=== PATIENT | male | born 1950 | race Hispanic/Latino ===

== ENCOUNTER → 2017-08-27 | Outpatient (CLI) | payer MEDICARE | END | disposition home or self-care (01) | LOC: SHCH 08:35 | PROVIDERS: ATTEND Internal Medicine Cardiovascular Disease | DX: I73.9 Peripheral vascular disease, unspecified (principal) | CPT/HCPCS: 93925 ==

== ENCOUNTER → 2017-08-27 | Outpatient (CLI) | payer MEDICARE | END | disposition home or self-care (01) | LOC: SHCH 08:05 | PROVIDERS: ATTEND Internal Medicine Cardiovascular Disease | DX: I71.4 Abdominal aortic aneurysm, without rupture (principal) | CPT/HCPCS: 93978 ==

== ENCOUNTER → 2017-10-24 | Outpatient (CLI) | payer MEDICARE ==
[~2017-10-24] MED LIST: IOPAMIDOL-370 100 ML VIAL IV ONE; ISOVUE-370 50ML VIAL IV ONE
== END | disposition home or self-care (01) ==
LOC: RAH 07:37
PROVIDERS: ATTEND Internal Medicine Cardiovascular Disease
DX: I70.0 Atherosclerosis of aorta (principal); I73.9 Peripheral vascular disease, unspecified; K82.8 Other specified diseases of gallbladder; Q61.3 Polycystic kidney, unspecified; M25.461 Effusion, right knee
CPT/HCPCS: 75635; Q9967 ×2

== ENCOUNTER → 2018-05-18 | Outpatient (CLI) | payer MEDICARE ==
[~2018-05-18] MED LIST changes: +CLOP75TA32 PO; +FOLI1TAB85 PO; +IOHEXOL-350 75 ML VIAL IV ONE; -IOPAMIDOL-370 100 ML VIAL IV ONE; -ISOVUE-370 50ML VIAL IV ONE; +LISI-613 PO; +PANT40TA25 PO; +PHOSLOC PO
== END | disposition home or self-care (01) ==
LOC: RAH 13:25
PROVIDERS: ATTEND Internal Medicine Nephrology
DX: M47.896 Other spondylosis, lumbar region (principal); M48.061 Spinal stenosis, lumbar region without neurogenic claudication; K57.90 Diverticulosis of intestine, part unspecified, without perforation or abscess without bleeding; Q61.3 Polycystic kidney, unspecified; M41.86 Other forms of scoliosis, lumbar region
CPT/HCPCS: 72133; Q9967

== ENCOUNTER → 2018-08-05 | Outpatient (CLI) | payer MEDICARE ==
[~2018-08-05] MED LIST changes: -IOHEXOL-350 75 ML VIAL IV ONE
== END | disposition home or self-care (01) ==
LOC: SHCH 10:12
PROVIDERS: ATTEND Internal Medicine Cardiovascular Disease
DX: I11.9 Hypertensive heart disease without heart failure (principal); I73.9 Peripheral vascular disease, unspecified
CPT/HCPCS: 93306; 93925

== ENCOUNTER → 2019-03-08 | Outpatient (CLI) | payer MEDICARE | END | disposition home or self-care (01) | LOC: SHCH 09:21 | PROVIDERS: ATTEND Internal Medicine Cardiovascular Disease | DX: I73.9 Peripheral vascular disease, unspecified (principal) | CPT/HCPCS: 93925 ==

== ENCOUNTER → 2019-07-21 | Outpatient (CLI) | payer MEDICARE ==
[~2019-07-21] MED LIST changes: +CLON0.2T PO; -CLOP75TA32 PO; -LISI-613 PO; -PHOSLOC PO
== END | disposition home or self-care (01) ==
LOC: SHCH 08:23
PROVIDERS: ATTEND Internal Medicine Cardiovascular Disease
DX: I08.2 Rheumatic disorders of both aortic and tricuspid valves (principal)
CPT/HCPCS: 93306; 93356

== ENCOUNTER 2019-07-26 18:39 | Inpatient (IN) | payer MEDICARE ==
[~2019-07-26] VITALS: Ht 167.6 cm; Wt 63.4 kg
[~2019-07-26 18:39] MED LIST changes: +ALBUMIN (HUMAN) 25% 50 ML IV ONE; +AMINOCAPROIC ACID 250 MG/ML 20 ML VIAL IV ONE; +CALCIUM CHLORIDE 100 MG/ML 10 ML SYG IVP ONE; +HEPARIN SODIUM 1000UNIT/ML 10ML VIAL IV ONE; +MAGNESIUM SULFATE 1 GM/2 ML VIAL IM ONE; +PHENYLEPHRINE HCL 10 MG/ML 1ML VIAL IV ONE; +SODIUM BICARB 8.4% 50ML SYRINGE IVP ONE
[2019-07-26 20:01] LABS: HEMATOCRIT 29.7 % (42-54); MEAN CORPUSCULAR HEMOGLOBIN 30.7 pg (27.0-33.0); MEAN CORPUSCULAR HGB CONC 32.3 g/dL (32.0-36.0); MEAN CORPUSCULAR VOLUME 94.9 fL (79-99); PLATELET COUNT (AUTO) 131 K/uL (130-400); RED BLOOD CELL COUNT(AUTO) 3.13 MIL/uL (4.50-6.20); RED CELL DISTRIBUTION WIDTH 13.2 % (11.0-15.5); WHITE BLOOD COUNT (AUTO) 3.6 K/uL (4.8-10.8)
[2019-07-26 20:14] LABS: INR 1.07 (0.85-1.15); PARTIAL THROMBOPLASTIN TIME 29.5 SEC (26.3-35.5); PROTHROMBIN TIME 11.2 SEC (9.6-11.6)
[2019-07-26 20:16] LABS: BILIRUBIN,TOTAL 0.6 mg/dL (0.2-1.0); POTASSIUM 4.5 mmol/L (3.5-5.1); TOTAL PROTEIN, SERUM 7.7 g/dL (6.0-8.3)
[2019-07-26 20:17] LABS: CREATININE 7.9 mg/dL (0.5-1.5)
[2019-07-26] MEDS: ATORVASTATIN CALCIUM 20 MG TABLET PO SCH (21:00)
[2019-07-26] MEDS: METOPROLOL TARTRATE 25 MG TAB PO SCH (21:00)
[2019-07-26 23:58] VITALS: BP 197/74
[2019-07-27] VITALS (48 sets, daily range): BP systolic 57–184; BP diastolic 0–95
--- NOTE | 2019-07-27 07:25 | NUR ---
ASSESSMENT ENCOUNTERED PT A&OX3, HARD OF HEARING, CALM COOPERATIVE AND DOES NOT APPEAR TO BE IN ANY DISTRESS NOR ANY NEURO DEFICITS PRESENT. PT DENIES PAIN, SOB, NAUSEA. LAVA WITH BRUIT/THRILL PRESENT, PT IS NPO PENDING CABG, CALL LIGHT WITHIN REACH, FAMILY AT BEDSIDE.
[2019-07-27] MEDS: METOPROLOL TARTRATE 25 MG TAB PO SCH (07:41)
[2019-07-27] MEDS ORDERED: AMINOCAPROIC ACID 15,000 MG in SODIUM CHLORIDE 0.9% 500ML 420 ML IV PRN (08:15)
[2019-07-27] MEDS ORDERED: NOREPINEPHRINE BITARTRATE 8 MG in DEXTROSE 5%-WATER 250 ML IV PRN (08:15)
[2019-07-27] MEDS ORDERED: EPINEPHRINE 10 MG in SODIUM CHLORIDE 0.9% 240 ML IV PRN (08:15)
[2019-07-27] MEDS ORDERED: ASPIRIN 81 MG EC TAB PO SCH (09:00)
[2019-07-27] MEDS ORDERED: HEPARIN SODIUM 1000UNIT/ML 10ML VIAL ONE (10:06)
[2019-07-27] MEDS ORDERED: EPINEPHRINE 1 MG/ML AMPULE ONE (10:06)
[2019-07-27] MEDS ORDERED: LIDOCAINE PF 2% 5ML ABBOJECT ONE ×4 (10:06→10:12)
[2019-07-27] MEDS ORDERED: SODIUM BICARB 50MEQ 50ML VIAL ONE (10:06)
[2019-07-27] MEDS ORDERED: PROTAMINE SULFATE 10 MG/ML 25ML VIAL IV ONE (10:06)
[2019-07-27] MEDS ORDERED: ESMOLOL HCL 10 MG/ML 10 ML VIAL ONE (10:06)
[2019-07-27] MEDS ORDERED: FENTANYL CITRATE PF 50 MCG/1 ML 20ML VIAL IJ ONE (10:07)
[2019-07-27] MEDS ORDERED: ROCURONIUM 10MG/1ML SYR 10 MG/ML ML ONE ×2 (10:07→15:47)
[2019-07-27] MEDS ORDERED: PROPOFOL 10 MG/ML 20ML VIAL IV ONE (10:07)
[2019-07-27] MEDS ORDERED: MIDAZOLAM HCL 1 MG/ML 2ML VIAL ONE (10:07)
[2019-07-27] MEDS ORDERED: NOREPINEPHRINE BITARTRATE 1 MG/1 ML ML IV ONE (10:07)
[2019-07-27] MEDS ORDERED: AMINOCAPROIC ACID 250 MG/ML 20 ML VIAL IV ONE (10:07)
[2019-07-27] MEDS ORDERED: KETAMINE 50MG/ML SYRINGE 50 MG/ML DISP.SYRIN IV ONE (10:08)
[2019-07-27] MEDS ORDERED: CITRIC ACID/SODIUM CITRATE 30 ML UDCUP ONE (10:25)
[2019-07-27] MEDS ORDERED: OCTYL 2-CYANOACRYLATE 1 EACH TP ONE (11:01)
[2019-07-27] MEDS ORDERED: PAPAVERINE HCL 30 MG/ML 2ML VIAL ONE (11:02)
[2019-07-27] MEDS ORDERED: NITROGLYCERIN 50 MG/D5% WATER 1 BOT ONE (11:02)
[2019-07-27] MEDS ORDERED: BACITRACIN 50,000 UNIT VIAL ONE (11:02)
[2019-07-27] MEDS ORDERED: SODIUM CHLORIDE 0.9% 1000ML 1,000 ML IV ONE ×2 (11:20→14:34)
[2019-07-27] MEDS: CEFAZOLIN SODIUM 1 GM VIAL IVP PRN ×2 (11:26→12:15)
[2019-07-27 12:37] LABS: ABG HCO3 26.3 mmol/L (21.0-28.0); ABG PCO2 28 mmHg (35-48)
[2019-07-27] MEDS ORDERED: DELNIDO FORMULA 2 BAG IV ONE (13:36)
[2019-07-27 14:05] LABS: ABG BASE EXCESS 0.6 mmol/L (-2.0-3.0); ABG HCO3 23.2 mmol/L (21.0-28.0); ABG OXYGEN SATURATION 99.2 % (95.0-99.0); ABG PCO2 30 mmHg (35-48)
[2019-07-27] MEDS ORDERED: AMIODARONE HCL 50 MG/ML 3 ML VIAL ONE ×2 (14:13→15:35)
[2019-07-27 14:36] LABS: ABG BASE EXCESS -3.4 mmol/L (-2.0-3.0); ABG HCO3 20.1 mmol/L (21.0-28.0); ABG OXYGEN SATURATION 98.8 % (95.0-99.0); ABG PCO2 30 mmHg (35-48)
--- NOTE | 2019-07-27 14:42 | NUR ---
JO PLAN PATIENT DOWN FOR PROCEDURE. MARVIN WILL CONTINUE TO FOLLOW. Addendum: 07/27/19 at 1444 by SOCORRO WILHELM RN CM Amended: Links added.
[2019-07-27 15:13] LABS: ABG HCO3 29.5 mmol/L (21.0-28.0); ABG OXYGEN SATURATION 98.7 % (95.0-99.0); ABG PCO2 33 mmHg (35-48)
[2019-07-27] MEDS ORDERED: PROTAMINE SULFATE 10 MG/ML 5 ML VIAL ONE (15:25)
[2019-07-27] MEDS ORDERED: ALBUMIN (HUMAN) 5% 250 ML IV ONE ×3 (15:30→19:15)
[2019-07-27] MEDS ORDERED: GLYCOPYRROLATE 1 MG/5 ML SYRINGE ONE (15:38)
[2019-07-27 15:42] LABS: ABG BASE EXCESS -0.2 mmol/L (-2.0-3.0); ABG HCO3 22.5 mmol/L (21.0-28.0); ABG OXYGEN SATURATION 98.8 % (95.0-99.0); ABG PCO2 28 mmHg (35-48)
[2019-07-27] MEDS ORDERED: CEFAZOLIN SODIUM 1 GM VIAL ONE (15:59)
[2019-07-27 16:18] LABS: ABG BASE EXCESS -1.6 mmol/L (-2.0-3.0); ABG OXYGEN SATURATION 98.8 % (95.0-99.0); ABG PCO2 33 mmHg (35-48)
[2019-07-27] MEDS ORDERED: EPHEDRINE SULFATE 50 MG/ML AMPULE ONE (16:25)
[2019-07-27] MEDS ORDERED: ALBUMIN (HUMAN) 5% 250 ML IV PRN (16:45)
[2019-07-27] MEDS ORDERED: NOREPINEPHRINE 4MG/NS 250ML 250 ML IV PRN (16:45)
[2019-07-27] MEDS ORDERED: ACETAMINOPHEN 325 MG TAB PO PRN ×2 (16:45)
[2019-07-27] MEDS ORDERED: POTASSIUM PHOS 15 mMOL+NS250ML 250 ML IV PRN (16:45)
[2019-07-27] MEDS ORDERED: NITROGLYCERIN 50 MG/D5% WATER 250 BOT IV SCH (16:45)
[2019-07-27] MEDS ORDERED: MORPHINE SULFATE 4 MG/1ML SYG IV PRN (16:45)
[2019-07-27] MEDS ORDERED: GLUCAGON 1MG KIT 1 MG ML IM PRN (16:45)
[2019-07-27] MEDS ORDERED: ONDANSETRON HCL 4 MG/2 ML VIAL IV PRN (16:45)
[2019-07-27] MEDS ORDERED: ACETAMINOPHEN 650 MG SUPPOSITORY RC PRN (16:45)
[2019-07-27] MEDS ORDERED: SODIUM CHLORIDE 0.9% 500ML 500 ML IV SCH (16:45)
[2019-07-27] MEDS ORDERED: SODIUM CHLORIDE 0.9% 10 ML VIAL IVP PRN (16:45)
[2019-07-27] MEDS ORDERED: INSULIN REGULAR, HUMAN 3ML 100 UNIT in SODIUM CHLORIDE 0.9% 99 ML IV SCH ×2 (16:45)
[2019-07-27] MEDS ORDERED: PROPOFOL 1000 MG/100 ML 100 ML IV PRN (16:45)
[2019-07-27] MEDS ORDERED: EPINEPHRINE 2 MG in DEXTROSE 5%-WATER 250 ML IV PRN (16:45)
[2019-07-27] MEDS ORDERED: AMINOCAPROIC ACID 15,000 MG in SODIUM CHLORIDE 0.9% 250 ML IV SCH (16:45)
[2019-07-27] MEDS ORDERED: MORPHINE SULFATE 2 MG/ML 1ML SYG IV PRN (16:45)
[2019-07-27] MEDS ORDERED: TRAMADOL HCL 50 MG TABLET PO PRN ×2 (16:45)
[2019-07-27] MEDS ORDERED: SODIUM CHLORIDE 0.9% 1000ML 1,000 ML IV SCH (16:45)
[2019-07-27] MEDS ORDERED: POTASSIUM CHLORIDE 20MEQ/100ML 100 ML IV PRN (16:45)
[2019-07-27] MEDS ORDERED: MAGNESIUM 2GM PREMIX 50ML 50 ML IV PRN (16:45)
[2019-07-27 17:10] LABS: ABG BASE EXCESS -4.7 mmol/L (-2.0-3.0); ABG HCO3 18.4 mmol/L (21.0-28.0); ABG OXYGEN SATURATION 98.1 % (95.0-99.0); ABG PCO2 28 mmHg (35-48)
[2019-07-27 17:41] LABS: HEMATOCRIT 25.8 % (42-54); MEAN CORPUSCULAR HEMOGLOBIN 31.5 pg (27.0-33.0); MEAN CORPUSCULAR HGB CONC 33.3 g/dL (32.0-36.0); MEAN CORPUSCULAR VOLUME 94.5 fL (79-99); PLATELET COUNT (AUTO) 83 K/uL (130-400); RED BLOOD CELL COUNT(AUTO) 2.73 MIL/uL (4.50-6.20); RED CELL DISTRIBUTION WIDTH 13.2 % (11.0-15.5)
[2019-07-27 17:53] LABS: ABG BASE EXCESS 1.1 mmol/L (-2.0-3.0); ABG PCO2 27 mmHg (35-48)
[2019-07-27 17:56] LABS: INR 1.47 (0.85-1.15); PARTIAL THROMBOPLASTIN TIME 31.6 SEC (26.3-35.5); PROTHROMBIN TIME 15.2 SEC (9.6-11.6)
[2019-07-27 17:57] LABS: CREATININE 4.3 mg/dL (0.5-1.5); MAGNESIUM 3.1 mg/dL (1.80-2.40); PHOSPHORUS 3.6 mg/dL (2.5-4.9); POTASSIUM 3.9 mmol/L (3.5-5.1)
[2019-07-27] MEDS: SODIUM BICARB 50MEQ 50ML VIAL IV PRN ×5 (18:21→22:05)
[2019-07-27] MEDS: CALCIUM GLUCONATE 1 GM in SODIUM CHLORIDE 0.9% 50 ML IV PRN (18:22)
[2019-07-27] MEDS: DEXTROSE 50%-WATER 50 ML DISP.SYRIN IV PRN (18:25)
[2019-07-27 19:12] LABS: ABG BASE EXCESS -3.9 mmol/L (-2.0-3.0); ABG HCO3 19.7 mmol/L (21.0-28.0); ABG OXYGEN SATURATION 97.8 % (95.0-99.0); ABG PCO2 30 mmHg (35-48)
[2019-07-27 20:18] LABS: BASOPHILS % (AUTO) 0.1 % (0.0-5.0); EOSINOPHILS % (AUTO) 0.2 % (0.0-8.0); LYMPHOCYTES % (AUTO) 7.3 % (21.0-51.0); MEAN CORPUSCULAR HEMOGLOBIN 30.7 pg (27.0-33.0); MEAN CORPUSCULAR HGB CONC 32.4 g/dL (32.0-36.0); MEAN CORPUSCULAR VOLUME 94.9 fL (79-99); MONOCYTES % (AUTO) 8.3 % (3.0-13.0); NEUTROPHILS % (AUTO) 83.7 % (40.0-77.0); PLATELET COUNT (AUTO) 94 K/uL (130-400); RED BLOOD CELL COUNT(AUTO) 2.15 MIL/uL (4.50-6.20); RED CELL DISTRIBUTION WIDTH 13.3 % (11.0-15.5); WHITE BLOOD COUNT (AUTO) 11.8 K/uL (4.8-10.8)
[2019-07-27] MEDS ORDERED: SODIUM CHLORIDE 0.9% 250 ML IV ONE (20:21)
[2019-07-27 20:25] LABS: ABG BASE EXCESS -0.7 mmol/L (-2.0-3.0); ABG OXYGEN SATURATION 97.9 % (95.0-99.0); ABG PCO2 34 mmHg (35-48)
[2019-07-27] MEDS ORDERED: VASOPRESSIN 40 UNITS in SODIUM CHLORIDE 0.9% 40 ML IV SCH (20:30)
[2019-07-27 20:35] LABS: HEMATOCRIT 20.4 % (42-54)
[2019-07-27] MEDS: ATORVASTATIN CALCIUM 20 MG TABLET PO SCH (21:00)
[2019-07-27] MEDS ORDERED: CALCIUM GLUCONATE 1 GM/10 ML VIAL IV ONE ×2 (21:02→23:17)
[2019-07-27] MEDS: CEFAZOLIN SODIUM 1 GM VIAL IV SCH (21:45)
[2019-07-27 21:50] LABS: ABG BASE EXCESS -4.6 mmol/L (-2.0-3.0); ABG HCO3 19.4 mmol/L (21.0-28.0); ABG PCO2 31 mmHg (35-48)
[2019-07-27 23:15] LABS: ABG BASE EXCESS -1.4 mmol/L (-2.0-3.0); ABG HCO3 22.2 mmol/L (21.0-28.0); ABG PCO2 33 mmHg (35-48)
[2019-07-28] VITALS (84 sets, daily range): BP systolic 9–210; BP diastolic -10–199
[2019-07-28] MEDS: SODIUM BICARB 50MEQ 50ML VIAL IV PRN ×6 (00:05→08:07)
[2019-07-28] MEDS: DEXTROSE 50%-WATER 50 ML DISP.SYRIN IV PRN ×2 (00:15→08:42)
[2019-07-28 01:35] LABS: ABG BASE EXCESS -5.3 mmol/L (-2.0-3.0); ABG HCO3 18.1 mmol/L (21.0-28.0); ABG OXYGEN SATURATION 98.5 % (95.0-99.0); ABG PCO2 29 mmHg (35-48)
[2019-07-28] MEDS ORDERED: CALCIUM GLUCONATE 1 GM/10 ML VIAL IV ONE ×2 (01:56→03:11)
[2019-07-28 03:07] LABS: ABG BASE EXCESS -1.6 mmol/L (-2.0-3.0); ABG HCO3 21.6 mmol/L (21.0-28.0); ABG OXYGEN SATURATION 98.1 % (95.0-99.0); ABG PCO2 32 mmHg (35-48)
[2019-07-28 04:29] LABS: ABG BASE EXCESS -3.4 mmol/L (-2.0-3.0); ABG HCO3 18.8 mmol/L (21.0-28.0); ABG OXYGEN SATURATION 99.3 % (95.0-99.0); ABG PCO2 27 mmHg (35-48)
[2019-07-28 04:37] LABS: HEMATOCRIT 29.8 % (42-54); MEAN CORPUSCULAR HEMOGLOBIN 31.1 pg (27.0-33.0); MEAN CORPUSCULAR HGB CONC 34.2 g/dL (32.0-36.0); MEAN CORPUSCULAR VOLUME 90.9 fL (79-99); PLATELET COUNT (AUTO) 74 K/uL (130-400); RED BLOOD CELL COUNT(AUTO) 3.28 MIL/uL (4.50-6.20); WHITE BLOOD COUNT (AUTO) 10.5 K/uL (4.8-10.8)
[2019-07-28 04:50] LABS: INR 2.1 (0.85-1.15); PARTIAL THROMBOPLASTIN TIME 40.9 SEC (26.3-35.5); PROTHROMBIN TIME 21.4 SEC (9.6-11.6)
[2019-07-28 05:05] LABS: CREATININE 5.7 mg/dL (0.5-1.5); PHOSPHORUS 5.6 mg/dL (2.5-4.9); POTASSIUM 3.7 mmol/L (3.5-5.1)
[2019-07-28] MEDS ORDERED: ALBUMIN (HUMAN) 5% 250 ML IV ONE (05:47)
[2019-07-28] MEDS: CEFAZOLIN SODIUM 1 GM VIAL IV SCH (06:06)
[2019-07-28 06:20] LABS: ABG BASE EXCESS -2.1 mmol/L (-2.0-3.0); ABG HCO3 21.1 mmol/L (21.0-28.0); ABG OXYGEN SATURATION 99.3 % (95.0-99.0); ABG PCO2 32 mmHg (35-48)
[2019-07-28] MEDS ORDERED: PHARMACY COMMUNICATION MISC SCH (07:00)
[2019-07-28] MEDS: CALCIUM GLUCONATE 1 GM in SODIUM CHLORIDE 0.9% 50 ML IV PRN ×2 (07:38→07:39)
[2019-07-28 07:54] LABS: ABG BASE EXCESS -1.8 mmol/L (-2.0-3.0); ABG HCO3 21.3 mmol/L (21.0-28.0); ABG OXYGEN SATURATION 97.9 % (95.0-99.0); ABG PCO2 30 mmHg (35-48)
[2019-07-28] MEDS ORDERED: DEXTROSE 10%-WATER 1,000 ML IV SCH (08:30)
[2019-07-28] MEDS ORDERED: DEXTROSE 10%-WATER 1,000 ML IV ONE (08:30)
[2019-07-28 08:45] LABS: ABG BASE EXCESS 0.4 mmol/L (-2.0-3.0); ABG HCO3 23.4 mmol/L (21.0-28.0); ABG OXYGEN SATURATION 99.3 % (95.0-99.0); ABG PCO2 33 mmHg (35-48)
[2019-07-28] MEDS ORDERED: ASPIRIN 325MG EC TAB 325 MG TABLET.DR PO SCH (09:00)
[2019-07-28] MEDS ORDERED: FAMOTIDINE/PF 20 MG/2 ML VIAL IV SCH (09:00)
[2019-07-28] MEDS ORDERED: FOLIC ACID/VITAMIN B COMP W-C 1 MG CAP/TAB PO SCH (09:00)
--- NOTE | 2019-07-28 09:35 | NUR ---
PRIOR TO KELLI ALBRECHT Patient was extubated as per protocol. Prior to extubation Dr. Bull was updated on patient overall condition and Hemodynamic status. Orders were received to extubate patient. Before extubation patient's ABG was within desired ranges (refer to labs) Patient remained baseline and on same rate of pressors. Patient was able to follow all commands from protocol. Negative inspiratory force was -26, Vital capacity was 1100. Instructions were given on expectations and post extubation expectations and instructions. Patient was then extubated at 0850 and placed on cool aerosol mask 40% as per protocol. Patient remained within baseline vitals post extubation. At 0930 patient BP dropped drastically(refer to vitals) and drips were increased drastically as well as intervention(refer to I&O) patient was still responsive at this point action was taken to get ABG stat and pull albumin, by 0934 patient became unresponsive and stopped breathing CPR was started and ACLS protocol was initiated and Tre JANSEN was instructed to call kelli albrecht. Refere to kelli albrecht record.
[2019-07-28 09:45] LABS: ABG BASE EXCESS 22.7 mmol/L (-2.0-3.0); ABG OXYGEN SATURATION 95.3 % (95.0-99.0); ABG PCO2 90 mmHg (35-48)
[2019-07-28] MEDS ORDERED: EPINEPHRINE 1 MG/ML AMPULE ONE (09:54)
[2019-07-28 10:02] LABS: ABG BASE EXCESS -4.4 mmol/L (-2.0-3.0); ABG HCO3 18.9 mmol/L (21.0-28.0); ABG OXYGEN SATURATION 98.2 % (95.0-99.0); ABG PCO2 28 mmHg (35-48)
[2019-07-28] MEDS ORDERED: AMIODARONE HCL 50 MG/ML 3 ML VIAL IV ONE (12:00)
[2019-07-28] MEDS ORDERED: CALCIUM CHLORIDE 100 MG/ML 10 ML SYG IVP ONE (12:00)
[2019-07-28] MEDS ORDERED: SODIUM BICARB 8.4% 50ML SYRINGE IVP ONE (12:00)
--- NOTE | 2019-07-28 12:18 | NUR ---
CODE BLUE/ EMOTIONAL SUPPORT SW present for code blue code and no family present. Sw call #s listed on facesheet and was able to reach Sister in law at pt's home. Sister in law stated that pt's has hx of CVA and has cognitive issues, impaired speech. Sister contacted pt's sister Iggy Dickinson [phone] and informed of code blue and need for family to be at hospital. Sw recd call from pt's sister Whitney Armando [phone], sister was informed of Code Blue and asked to please come to hospital. Sister Whitney arrived at hospital shortly after 10 and spoke to MD at bedside. Sister asked for CPR to be stopped after their conversation. and sister in arrived right after and Whitney informed that pt had passed. Sw escorted and family to bedside and provided emotional support.
--- NOTE | 2019-07-28 14:50 | NUR ---
0940- PATIENT WAS ON CODE BLUE. Addendum: 07/28/19 at 1452 by TODD HOSKINS, PT PT Amended: Links added.
[2019-07-29] MEDS ORDERED: METOPROLOL TARTRATE 25 MG TAB PO SCH (09:00)
[2019-07-30] MEDS ORDERED: ENOXAPARIN SODIUM 30 MG/0.3 ML SQ SCH (09:00)
== END 2019-07-28 10:18 | disposition expired | DRG 219 ==
LOC: EDH 18:39 → EDHIP 18:58 → 2AH 22:11 → 2CV 07-27 11:25
PROVIDERS: ADMIT Thoracic Surgery (Cardiothoracic Vascular Surgery); ATTEND Thoracic Surgery (Cardiothoracic Vascular Surgery)
PROC: 5A1D70Z Performance of Urinary Filtration, Intermittent, Less than 6 Hours Per Day (ICD-10-PCS; 2019-07-26)
PROC: 5A12012 Performance of Cardiac Output, Single, Manual (ICD-10-PCS; 2019-07-26)
PROC: 5A1221Z Performance of Cardiac Output, Continuous (ICD-10-PCS; 2019-07-27)
PROC: B24BZZ4 Ultrasonography of Heart with Aorta, Transesophageal (ICD-10-PCS; 2019-07-27)
PROC: 3E083GC Introduction of Other Therapeutic Substance into Heart, Percutaneous Approach (ICD-10-PCS; 2019-07-27)
PROC: 02100Z9 Bypass Coronary Artery, One Artery from Left Internal Mammary, Open Approach (ICD-10-PCS; principal; 2019-07-27 12:14)
PROC: 02RF08Z Replacement of Aortic Valve with Zooplastic Tissue, Open Approach (ICD-10-PCS; 2019-07-27 12:14)
PROC: 021109W Bypass Coronary Artery, Two Arteries from Aorta with Autologous Venous Tissue, Open Approach (ICD-10-PCS; 2019-07-27 12:14)
PROC: 06BQ4ZZ Excision of Left Saphenous Vein, Percutaneous Endoscopic Approach (ICD-10-PCS; 2019-07-27 12:14)
PROC: 30233N1 Transfusion of Nonautologous Red Blood Cells into Peripheral Vein, Percutaneous Approach (ICD-10-PCS; 2019-07-28)
DX: I25.10 Atherosclerotic heart disease of native coronary artery without angina pectoris (principal); N18.6 End stage renal disease; I13.11 Hypertensive heart and chronic kidney disease without heart failure, with stage 5 chronic kidney disease, or end stage renal disease; Q61.3 Polycystic kidney, unspecified; I35.0 Nonrheumatic aortic (valve) stenosis; I73.9 Peripheral vascular disease, unspecified; I49.5 Sick sinus syndrome; D64.9 Anemia, unspecified; E03.9 Hypothyroidism, unspecified; E78.5 Hyperlipidemia, unspecified; Z99.2 Dependence on renal dialysis; Z95.0 Presence of cardiac pacemaker; Z95.5 Presence of coronary angioplasty implant and graft; Z80.9 Family history of malignant neoplasm, unspecified; Z82.49 Family history of ischemic heart disease and other diseases of the circulatory system
CPT/HCPCS: 31500; 36415; 36430; 71045; 76998; 80048; 80053; 82330; 82435; 82803; 82947; 82948; 83605; 83735; 84100; 84132; 84295; 85018; 85025; 85027; 85347; 85610; 85730; 86850; 86900; 86901; 86922; 88305; 90935; 92950; 93005; 93318; 93880; 94002; 94003; 94010; 94150; 94770; A4351; A4606; A7048; G0378; J0171; J0282; J0610; J0690; J1644; J1815; J2001; J2250; J2370; J2440; J2704; J2720; J3010; J3475; J3490; J7030; J7040; J7060; J7070; J7120; P9016; P9045; P9047